=== PATIENT | female | born 1960 | race Caucasian/White ===

== ENCOUNTER 2019-07-15 12:48 | Emergency (ER) | payer OTHER ==
[2019-07-15 14:05] VITALS: BP 142/94
--- NOTE | 2019-07-15 14:31 | UC ---
Laceration HPI - HPI Summary HPI Summary: 59 yo female presents with lip laceration. She tells me that just [employer] she was helping move a metal cabinet and it slipped and impacted pt's left upper lip. She sustained a small laceration to the area. She applied pressure and came directly to . No LOC or dental fracture. Denies headache, dizziness, neck pain. - History Of Current Complaint Chief Complaint: UCLaceration Stated Complaint: LIP LACERATION Time Seen by Provider: 07/15/19 14:30 Hx Obtained From: Patient Mechanism Of Injury: Blunt Trauma Onset/Duration: Sudden Onset Pain Intensity: 0 - Allergies/Home Medications Allergies/Adverse Reactions: Allergies Allergy/AdvReac Type Severity Reaction Status Date / Time No Known Allergies Allergy Verified 07/15/19 14:00 PMH/Surg Hx/FS Hx/Imm Hx Endocrine History: Dyslipidemia Cardiovascular History: Hypertension GI/ History: Gastroesophageal Reflux - Surgical History Surgical History: Yes Surgery Procedure, Year, and Place: HYSTERECTOMY- [facility]-13 YEARS AGO - Family History Known Family History: Positive: Hypertension - Social History Lives: With Family Alcohol Use: None Substance Use Type: None Smoking Status (MU): Never Smoked Tobacco Review of Systems All Other Systems Reviewed And Are Negative: No Constitutional: Positive: Negative Skin: Positive: Other - Lip laceration Respiratory: Positive: Negative Cardiovascular: Positive: Negative Neurovascular: Positive: Negative Neurological: Positive: Negative Psychological: Positive: Negative Physical Exam - Summary Physical Exam Summary: GENERAL: NAD. WDWN. No pain distress. SKIN: LIP: upper lip with vertical superficial laceration inferior aspect terminating at the vermilion border. 5mm in length. Well approximated at rest. CHEST: No accessory muscle use. Breathing comfortably and in no distress. CV: Pulses intact. Cap refill <2seconds NEURO: Alert. PSYCH: Age appropriate behavior. Triage Information Reviewed: Yes Vital Signs: Initial Vital Signs Temp 98.3 F 07/15/19 14:02 Pulse 78 07/15/19 14:02 Resp 16 07/15/19 14:02 BP 142/94 07/15/19 14:02 Pulse Ox 100 07/15/19 14:02 Vital Signs Reviewed: Yes Laceration Repair - Laceration Repair 1 Description: Linear Laceration Size After Repair: Length (cm) - 0.5 Cleansing Completed Via Routine Prep: Yes Closure Material: Skin Adhesive Closure Method: Single Layer Suture Of: Skin Laceration Course/Dx - Course/Dx Course Of Treatment: Area well approximated at rest. Cleansed with saline. Dermabond applied. Advised to apply ice to decrease pain and swelling. - Diagnosis Provider Diagnosis: Lip laceration Discharge ED - Sign-Out/Discharge Documenting (check all that apply): Patient Departure All imaging exams completed and their final reports reviewed: No Studies - Discharge Plan Condition: Stable Disposition: HOME Patient Education Materials: Skin Adhesive Care (ED) Referrals: Georgina Nieves MD [Primary Care Provider] - Additional Instructions: If you develop a fever, shortness of breath, chest pain, new or worsening symptoms - please call your PCP or go to the ED immediately. Your blood pressure was high at todays visit. Please see your primary provider within 4 weeks for recheck and re-evaluation. Apply ice to your lip to decrease pain and swelling - Billing Disposition and Condition Condition: STABLE Disposition: Home
== END 2019-07-15 14:40 | disposition home or self-care (01) ==
LOC: UCEAST 12:48
DX: S01.511A Laceration without foreign body of lip, initial encounter (principal); I10 Essential (primary) hypertension; W22.8XXA Striking against or struck by other objects, initial encounter; Y92.9 Unspecified place or not applicable
CPT/HCPCS: 12011; 99211; G0463